=== PATIENT | female | born 1955 | race Caucasian/White ===

== ENCOUNTER 2017-07-18 06:56 | Inpatient (IN) ==
--- NOTE | 2017-07-13 16:41 | General Surgery Progress Note ---
Surgical - Auxillary Note - Subjective Patient Information: Note initiated : 07/13/17 at 4:37 pm Service Date, if different from initiated Date: [] Patient: Aroldo Overton 62 y/o F admitted on for Left Total Hip Arthroplasty. Chief Complaint: [preop visit] high risk surgical patient hx of dm, smoking, obesity, daily mj smoking, brain abscess surgery, psych, vonwillbrand last surgery 18 mo ago, lumbar w manisha, no complications. denies receiving ddavp denies EVER getting ddavp labs pending sx aware of issues, no orders for ddavp pt understands high risk, wishes to proceed.
[2017-07-13 20:10] LABS: Appearance,Urine CLEAR; Bilirubin,Urine NEG (NEG); Color,Urine YELLOW; Glucose,Urine (UA) NEGATIVE (NEG); Leukocyte Esterase,Urine NEG /uL (NEG); Protein,Urine 30 mg/dL (NEG); Specific Gravity,Urine 1.031 (1.000-1.035); Urine Blood NEG mg/dL (<0.03); Urobilinogen,Urine NEG (NEG)
[2017-07-13 20:53] LABS: Bacteria,Urine FEW /hpf (0); Urine Hyaline Cast 25 /lpf (0-2); Urine RBC 2 /hpf (0-1); Urine Squamous Epithelial Cell 8 /hpf (0-4); Urine WBC 1 /hpf (0-4)
[2017-07-13 21:15] LABS: Blood Urea Nitrogen 21 mg/dl (8-23)
[2017-07-13 21:30] LABS: Basophils # (Auto) 0.1 K/mcL (0.0-0.3); Basophils % (Auto) 0.4 % (0.0-2.0); Eosinophils # (Auto) 0.4 K/mcL (0.0-0.7); Granulocytes % (Auto) 56.2 % (38.0-78.0); Lymphocytes # (Auto) 4.4 K/mcL (1.5-4.8); Lymphocytes % (Auto) 34.3 % (15.5-49.0); Mean Cell Volume 98.8 fL (80.0-100.0); Mean Corpuscular HGB Conc 33.1 g/dL (31.0-36.0); Mean Corpuscular Hemoglobin 32.7 pg (26.0-34.0); Monocytes # (Auto) 0.8 K/mcL (0.1-0.9); Monocytes % (Auto) 6.1 % (1.0-12.0); Platelet Count 276 K/mcL (140-440); RBC 4.05 M/mcL (4.00-5.20); Red Cell Distribution Width 13.6 % (11.5-14.5)
[~2017-07-18 06:56] MED LIST: CELECOXIB 200 MG CAPSULE PO SCH; PREGABALIN 150 MG CAPSULE PO SCH; ceFAZolin 1 GM VIAL IV SCH; oxyCODONE 10 MG TAB.ER.12H PO SCH
[2017-07-18] MEDS ORDERED: PROPOFOL 200 MG/20 ML VIAL IV ONE (10:14)
[2017-07-18] MEDS ORDERED: MIDAZOLAM 5 MG/5 ML VIAL ONE (10:14)
[2017-07-18] MEDS ORDERED: ONDANSETRON 4 MG/2 ML VIAL ONE (10:14)
[2017-07-18] MEDS ORDERED: ePHEDrine 50 MG/ML AMPUL IV ONE (10:14)
[2017-07-18] MEDS ORDERED: GLYCOPYRROLATE 0.2 MG/ML VIAL IV ONE (10:14)
[2017-07-18] MEDS ORDERED: LIDOCAINE HCL/PF 100 MG/5 ML SYRINGE IV ONE (10:14)
[2017-07-18] MEDS ORDERED: GENTAMICIN SULFATE 800 MG/20 ML VIAL IR ONE (10:35)
[2017-07-18] MEDS ORDERED: PROMETHAZINE 25 MG/ML VIAL IV PRN ×2 (11:29→11:51)
[2017-07-18] MEDS ORDERED: diphenhydrAMINE 50 MG/ML VIAL IV PRN (11:29)
[2017-07-18] MEDS ORDERED: ACETAMINOPHEN 1,000 MG/100 ML BOTTLE IV ONE (11:29)
[2017-07-18] MEDS ORDERED: NALOXONE HCL 0.4 MG/ML VIAL IV PRN (11:29)
[2017-07-18] MEDS ORDERED: LACTATED RINGERS 250 ML IV PRN (11:29)
[2017-07-18] MEDS ORDERED: ONDANSETRON 4 MG/2 ML VIAL IV PRN ×2 (11:29→11:51)
[2017-07-18] MEDS ORDERED: IPRATROPIUM/ALBUTEROL 3 ML AMPUL.NEB NEB PRN (11:29)
[2017-07-18] MEDS ORDERED: FLUMAZENIL 0.1 MG/ML ML IV PRN (11:29)
[2017-07-18] MEDS ORDERED: BENZOCAINE/MENTHOL 1 LOZENGE PO PRN ×2 (11:29→11:51)
[2017-07-18] MEDS ORDERED: MEPERIDINE 25 MG/ML SYRINGE IV PRN (11:29)
[2017-07-18] MEDS ORDERED: LACTATED RINGERS 1,000 ML IV SCH (11:30)
[2017-07-18] MEDS ORDERED: ALBUTEROL SULFATE 1 PUFF INHALER INH PRN (11:49)
--- NOTE | 2017-07-18 11:49 | Brief Operative Note ---
Date of procedure: 07/18/17 Pre-op diagnosis: left hip osteoarthritis Post-op diagnosis: same Procedure: left total hip arthroplasty Grafts/Implants: Yes Anesthesia: spinal Complications: none Surgeon: Mohinder Cox Fig Bar Machine Operator: Christiana Matute Estimated blood loss (cc): 150 Specimens Removed/Pathology: none sent Condition: stable Disposition: PACU
[2017-07-18] MEDS ORDERED: POLYETHYLENE GLYCOL 3350 17 GM PACKET PO PRN (11:51)
[2017-07-18] MEDS ORDERED: BISACODYL 10 MG SUPP.RECT PR PRN (11:51)
[2017-07-18] MEDS ORDERED: TRANEXAMIC ACID 1,000 MG/10 ML VIAL IV SCH (11:51)
[2017-07-18] MEDS ORDERED: MAGNESIUM HYDROXIDE 30 ML ORAL.SUSP PO PRN (11:51)
[2017-07-18] MEDS ORDERED: FLEETS ADULT ENEMA PR PRN (11:51)
[2017-07-18] MEDS ORDERED: ONDANSETRON ODT 4 MG TABLET SL PRN (11:51)
[2017-07-18] MEDS: KETOROLAC 30 MG/ML VIAL IV PRN (12:35)
[2017-07-18] MEDS: fentaNYL 100 MCG/2 ML VIAL IV PRN ×2 (12:40→12:45)
--- NOTE | 2017-07-18 14:10 | XRay Report ---
CLINICAL INFORMATION: Postop total hip prostheses COMPARISON: 12/19/2015 FINDINGS: Left total hip prostheses is anatomically aligned. Older right total hip prostheses also remains anatomically aligned without loosening or infection. No osseous abnormality. Soft tissues swelling seen as expected IMPRESSION: Negative Interpreted and Authenticated by: Mohinder Knapp 07/18/17
[2017-07-18] MEDS: 0.9 % SODIUM CHLORIDE 1,000 ML IV SCH ×3 (14:43→23:16)
[2017-07-18] MEDS: METHOCARBAMOL 750 MG TABLET PO PRN ×2 (14:43→23:25)
--- NOTE | 2017-07-18 16:26 | Operative Note ---
DATE OF OPERATION: 07/18/2017 PREOPERATIVE DIAGNOSIS: Degenerative joint disease, left hip. POSTOPERATIVE DIAGNOSIS: Degenerative joint disease, left hip. PROCEDURE: Left total hip arthroplasty. SURGEON: Ivan Cox M.D. COAL SCREENER SURGEON: Christiana Matute PA-C ANESTHESIA: Spinal with LMA assist. ESTIMATED BLOOD LOSS: 150 mL COMPLICATIONS: None noted. SPECIMENS REMOVED: None. DRAINS: None. IMPLANTS: DePuy Haywood hole eliminator PS, DePuy Jackson Gription acetabular shell, 52 mm OD, DePuy Jackson AltrX polyethylene acetabular liner, neutral 36 x 52, DePuy Actis DuoFix hip prosthesis cementless, cementless high offset collar size 6, DePuy Biolox Delta ceramic femoral head, +5 36 mm diameter. INDICATIONS: The patient has had a longstanding history of worsening pain in the hip that has failed conservative treatment. Radiographs have confirmed advanced degenerative joint disease. After a long discussion about treatment options, the patient elected to proceed with a hip arthroplasty. The risks and benefits were discussed with the patient in detail including, but not limited to, the risks of anesthesia, problems with the heart or lungs related to anesthesia, infection, compromise or injury to the nerves and blood vessels, deep venous thrombosis, pulmonary embolism, pneumonia, continued pain after surgery, worsening pain or symptoms after surgery, swelling, loss of motion, instability, leg length discrepancy, and need for repeat surgery. DESCRIPTION OF PROCEDURE: The patient was seen in pre-anesthesia waiting room where all questions were answered and the correct side and site were identified and marked. The patient was then brought to the operating room and administered the anesthetic and given pre-operative antibiotics. A timeout was then called. The patient was placed in the lateral decubitus position with all prominences well-padded using the Bong frame and the extremity was prepped and draped in the usual sterile fashion. Anesthesia gave the patient 1 gm of tranexamic acid via an intravenous route. A standard posterior approach was made. We dissected through the skin and subcutaneous tissue to the deep fascia. The deep fascia was split in line with the incision and a Charnley retractor was placed. We exposed, tagged, and incised the short external rotators and piriformis tendon and retracted them posteriorly to help protect the sciatic nerve which was palpated throughout the case. We then performed a T-capsulotomy and tagged the capsule edges. Prior to dislocating the hip, we set a length and offset gauge from a Steinmann pin in the iliac wing to a lalita on the greater trochanter. The hip was then dislocated and a femoral neck osteotomy was performed to the pre-surgical templated level off the lesser trochanter. The head was removed and sized. We next turned our attention to the acetabulum. Retractors were placed for optimal visualization. A complete labral excision was performed. The capsule was preserved for later closure. We began reaming using anatomic landmarks with the DePuy Jackson acetabular system. We medialized the cup and reamed up to provide good fill and coverage of the trial. When the trial was stable and appropriately positioned with approximately 20 degrees of anteversion and 45 degrees of abduction, we impacted the DePuy Jackson cup and placed a cancellous screw in the posterior-superior quadrant. Osteophytes were removed from around the shell. We placed the trial liner and turned our attention to the femur. We placed retractors for visualization, internally rotated the femur, and established intramedullary access. We broached using the DePuy Tri-Lock stem to a stable platform medial, lateral, and rotationally with the appropriate version. We then performed a calcar reaming off the broach. Trials were then placed and optimized for leg length and stability. We used the leg length and offset guide to confirm our trials. Best stability, length, and offset characteristics were obtained with these sizes. We removed all trials and impacted the polyethylene acetabular liner in a standard fashion after a thorough irrigation. We then impacted the femoral stem to its broached location and placed the head. Final reduction was performed. Again, good stability, leg length, and offset characteristics were noted. We irrigated with three liters of antibiotic saline. We closed the capsule with #2 FiberWire. We placed a deep drain and closed the fascia with a combination of looped #0 Maxon and #0 Vicryl. We closed the subcutaneous tissue and skin in layers out to farshad in the skin. A sterile pressure dressing and abduction wedge was applied. All needle and sponge counts were correct. The patient was transferred to the recovery room in stable condition. DORON:krunal Job ID: [id number] Doc ID: [id number] Ivan Cox MD
[2017-07-18] MEDS: 0.9 % SODIUM CHLORIDE 10 ML SYRINGE IV SCH ×2 (17:35→22:01)
[2017-07-18] MEDS: HYDROcodone/APAP 10/325MG TABLET PO PRN ×2 (17:53→23:15)
[2017-07-18] MEDS: ceFAZolin 1 GM VIAL IV SCH (17:54)
[2017-07-18] MEDS: GLIMEPIRIDE 2 MG TABLET PO SCH (17:54)
[2017-07-18] MEDS: ALPRAZolam 0.5 MG TABLET PO SCH (21:48)
[2017-07-18] MEDS: TEMAZEPAM 15 MG CAPSULE PO SCH (21:49)
[2017-07-18] MEDS: ASPIRIN 325 MG ENTERIC COATED TABLET PO SCH (21:50)
[2017-07-18] MEDS: SIMVASTATIN 20 MG TABLET PO SCH (21:50)
[2017-07-18] MEDS: CELECOXIB 200 MG CAPSULE PO SCH (21:50)
[2017-07-18] MEDS: BACLOFEN 10 MG TABLET PO SCH (21:50)
[2017-07-18] MEDS: QUEtiapine 100 MG TABLET PO SCH (21:50)
[2017-07-18] MEDS: PREGABALIN 150 MG CAPSULE PO SCH (21:50)
[2017-07-18] MEDS: DULoxetine 30 MG CAPSULE PO SCH (21:50)
[2017-07-18] MEDS: SENNOSIDES 1 TABLET PO SCH (21:51)
[2017-07-18] MEDS: DOCUSATE SODIUM 100 MG CAPSULE PO SCH (21:51)
[2017-07-18] MEDS: FLUTICASONE PROPIONATE SPRAY.NAS NS SCH (22:03)
[2017-07-19] MEDS: ceFAZolin 1 GM VIAL IV SCH (01:44)
[2017-07-19] MEDS: 0.9 % SODIUM CHLORIDE 1,000 ML IV SCH ×4 (03:26→20:10)
[2017-07-19] MEDS: HYDROcodone/APAP 10/325MG TABLET PO PRN ×5 (03:42→21:27)
[2017-07-19] MEDS: 0.9 % SODIUM CHLORIDE 10 ML SYRINGE IV SCH ×3 (05:20→21:40)
--- NOTE | 2017-07-19 07:30 | Orthopedic Progress Note ---
Subjective Patient information: Note initiated : 07/19/17 at 7:27 am Service Date, if different from initiated Date: [] Patient: Aroldo Overton 62 y/o F admitted on 07/18/17 for Left Total Hip Arthroplasty. Chief Complaint: [POD #1 s/p left ELINA Patient doing fairly well. Reports irritation of her lower back with a history of nerve compression. States she is having some radicular symptoms related to this but denies any new onset numbness or tingling in the lower extremities. She reports minimal pain in her left hip and ambulated well yesterday. She denies CP, SOB, or calf pain.] Objective Vital signs: Vital Signs Temp Pulse Resp BP BP Pulse Ox 07/19/17 04:00 97.6 F 71 18 143/82 99 07/19/17 00:00 97.8 F 67 16 111/67 97 07/18/17 20:00 97.8 F 57 L 16 136/75 94 07/18/17 14:46 134/70 99 07/18/17 13:46 115/58 100 07/18/17 13:17 131/56 97 07/18/17 13:05 97.9 F 54 L 13 134/69 100 07/18/17 13:00 97.9 F 50 L 12 126/63 100 07/18/17 12:47 111/61 98 07/18/17 12:45 55 L 15 123/59 100 07/18/17 12:32 82/46 98 07/18/17 12:30 97.5 F 59 L 14 136/98 100 07/18/17 12:25 52 L 10 L 113/55 100 07/18/17 12:20 51 L 11 L 105/54 99 07/18/17 12:18 123/53 99 07/18/17 12:15 97.6 F 67 16 158/67 100 07/18/17 12:12 142/63 99 Intake and Output 07/18/17 07/19/17 07/19/17 21:59 05:59 13:59 Intake Total 1290 / 1290 1200 / 1200 973 / 973 Output Total 576 / 576 300 / 300 Balance 714 / 714 900 / 900 973 / 973 Intake: IV 1000 / 1000 973 / 973 Sodium Chloride 0.9% 1,000 ml @ 1000 / 1000 973 / 973 125 mls/hr IV .Q8H VIVIANA Rx#: [id number] Oral 1290 / 1290 200 / 200 Output: Void Amount 575 / 575 300 / 300 # of times incontinent of urine Other: Meal Dinner Percent of Meal Consumed 100% Feeding Ability Independent Weight 245 lb 8 oz Intake & Output: Intake & Output 07/18/17 07/19/17 07/19/17 21:59 05:59 13:59 Intake Total 1290 / 1290 1200 / 1200 973 / 973 Output Total 576 / 576 300 / 300 Balance 714 / 714 900 / 900 973 / 973 Weight 245 lb 8 oz Intake: IV 1000 / 1000 973 / 973 Sodium Chloride 0.9% 1,000 ml @ 1000 / 1000 973 / 973 125 mls/hr IV .Q8H VIVIANA Rx#: [id number] Oral 1290 / 1290 200 / 200 Output: Void Amount 575 / 575 300 / 300 # of times incontinent of urine Other: Meal Dinner Percent of Meal Consumed 100% Feeding Ability Independent Incision: Yes healing, No draining, No red, No swollen, No inflamed, Yes clean and dry Incision clean and dry: Yes Dressing: Yes clean, Yes dry, Yes intact Weight bearing status: as tolerated Range of motion: Full AROM b/l ankles, feet, knees Neurological exam IM: Yes alert, Yes oriented X3 Extremities exam IM: No calf tenderness, Yes normal capillary refill, Yes normal inspection, No tenderness, No Jj's sign, Yes Foot pink and warm, Yes neurovascular intact - Periperhal Pulses Peripheral pulses: 2+: dorsalis pedis (L), dorsalis pedis (R), posterior tibialis (L), posterior tibialis (R) - Diagnostic Results Hip x-ray: image reviewed - Labs CBC & BMP: 07/19/17 04:30 07/13/17 16:48 Labs: Orthopedic Labs 07/13/17 16:48 PT 11.8 L INR 0.9 07/19/17 07/13/17 04:30 16:48 Hgb 9.9 L 13.2 Hct 29.5 L 40.1 Assessment and Plan (1) Hip osteoarthritis POD #1 s/p left ELINA: -d/c to SNF or swing bed in 3 days -inpatient PT -pain control -WBAT -may change dressing on 07/20. Has dermabond. -DVT prophylaxis with ASA 325mg BID Status: Acute
[2017-07-19] MEDS: GLIMEPIRIDE 2 MG TABLET PO SCH ×2 (09:15→17:01)
[2017-07-19] MEDS: METHOCARBAMOL 750 MG TABLET PO PRN (09:16)
[2017-07-19] MEDS: ASPIRIN 325 MG ENTERIC COATED TABLET PO SCH ×2 (10:32→21:30)
[2017-07-19] MEDS: DULoxetine 30 MG CAPSULE PO SCH ×3 (10:33→21:34)
[2017-07-19] MEDS: METOPROLOL TARTRATE 25 MG TABLET PO SCH (10:33)
[2017-07-19] MEDS: CELECOXIB 200 MG CAPSULE PO SCH ×3 (10:34→21:34)
[2017-07-19] MEDS: PHENYTOIN SOD 100 MG CAPSULE PO SCH (10:34)
[2017-07-19] MEDS: DOCUSATE SODIUM 100 MG CAPSULE PO SCH ×2 (10:34→21:29)
[2017-07-19] MEDS: PREGABALIN 150 MG CAPSULE PO SCH ×2 (10:34→21:29)
[2017-07-19] MEDS: KETOROLAC 30 MG/ML VIAL IV PRN ×3 (10:40→20:07)
[2017-07-19] MEDS: BACLOFEN 10 MG TABLET PO SCH (21:28)
[2017-07-19] MEDS: SIMVASTATIN 20 MG TABLET PO SCH (21:29)
[2017-07-19] MEDS: TEMAZEPAM 15 MG CAPSULE PO SCH (21:29)
[2017-07-19] MEDS: ALPRAZolam 0.5 MG TABLET PO SCH (21:29)
[2017-07-19] MEDS: FLUTICASONE PROPIONATE SPRAY.NAS NS SCH (21:31)
[2017-07-19] MEDS: SENNOSIDES 1 TABLET PO SCH (21:31)
[2017-07-19] MEDS: QUEtiapine 100 MG TABLET PO SCH (21:50)
[2017-07-20] MEDS: 0.9 % SODIUM CHLORIDE 1,000 ML IV SCH ×3 (04:18→22:23)
[2017-07-20] MEDS: HYDROcodone/APAP 10/325MG TABLET PO PRN ×4 (04:50→19:56)
[2017-07-20] MEDS: 0.9 % SODIUM CHLORIDE 10 ML SYRINGE IV SCH ×4 (04:51→21:28)
[2017-07-20] MEDS: KETOROLAC 30 MG/ML VIAL IV PRN (04:57)
--- NOTE | 2017-07-20 07:31 | Orthopedic Progress Note ---
Subjective Patient information: Note initiated : 07/20/17 at 7:29 am Service Date, if different from initiated Date: [] Patient: Aroldo Overton 62 y/o F admitted on 07/18/17 for Left Total Hip Arthroplasty. Chief Complaint: [] Interval history: doing well. still painful from sciatic nerve, hip ok Objective Vital signs: Vital Signs Temp Pulse Resp BP Pulse Ox 07/20/17 07:22 96.7 F L 61 18 110/69 96 07/20/17 04:00 97.9 F 67 18 101/66 93 07/20/17 00:00 97.8 F 66 18 115/62 94 07/19/17 20:00 98.0 F 59 L 20 134/72 96 07/19/17 15:52 98.7 F 64 103/67 94 07/19/17 11:45 98.6 F 57 L 123/69 95 07/19/17 08:18 98.7 F 65 129/77 100 Intake and Output 07/19/17 07/20/17 07/20/17 21:59 05:59 13:59 Intake Total 1000 / 1000 1550 / 1550 Output Total 500 / 500 Balance 500 / 500 1550 / 1550 Intake: IV 1000 / 1000 1000 / 1000 Sodium Chloride 0.9% 1,000 ml @ 1000 / 1000 1000 / 1000 125 mls/hr IV .Q8H VIVIANA Rx#: [id number] Oral 550 / 550 Output: Void Amount 500 / 500 Other: # Voids 1 Weight 246 lb Intake & Output: Intake & Output 07/19/17 07/20/17 07/20/17 21:59 05:59 13:59 Intake Total 1000 / 1000 1550 / 1550 Output Total 500 / 500 Balance 500 / 500 1550 / 1550 Weight 246 lb Intake: IV 1000 / 1000 1000 / 1000 Sodium Chloride 0.9% 1,000 ml @ 1000 / 1000 1000 / 1000 125 mls/hr IV .Q8H VIVIANA Rx#: [id number] Oral 550 / 550 Output: Void Amount 500 / 500 Other: # Voids 1 Incision: Yes healing Incision clean and dry: Yes Dressing: Yes clean, Yes dry, Yes intact Weight bearing status: full Neurological exam IM: Yes alert, Yes oriented X3, Yes neurovascular intact Extremities exam IM: No calf tenderness, Yes Foot pink and warm, Yes neurovascular intact - Labs CBC & BMP: 07/20/17 04:55 07/13/17 16:48 Labs: Orthopedic Labs 07/13/17 16:48 PT 11.8 L INR 0.9 07/20/17 07/19/17 07/13/17 04:55 04:30 16:48 Hgb 9.7 L 9.9 L 13.2 Hct 28.9 L 29.5 L 40.1 Assessment and Plan (1) Hip osteoarthritis pod 2 s/p kaci wbat pain control dvt prophylaxis d/c planning - swing bead Status: Acute
--- NOTE | 2017-07-20 07:32 | Discharge Summary ---
Ortho Discharge - ELINA - Patient Instructions Diet: Regular Diet Activity: weight bearing as tolerated Total Hip Protocol: Follow activity instructions as provided by Physical Therapy. Dressing Care: May shower in 2 days - Problem Maintenance (1) Hip osteoarthritis Status: Acute - Follow Up Plan Follow Up Appointments: Mohinder Cox MD [Physician] - 08/01/17 1:00 pm Disposition: Xfer SNF Prognosis: Good Rehab Potential: Good I certify that the patient requires SNF services: Yes Overall status at discharge: patient is progressing back to baseline
[2017-07-20] MEDS: GLIMEPIRIDE 2 MG TABLET PO SCH ×2 (07:50→17:39)
[2017-07-20] MEDS: DOCUSATE SODIUM 100 MG CAPSULE PO SCH ×2 (08:48→21:19)
[2017-07-20] MEDS: CELECOXIB 200 MG CAPSULE PO SCH ×3 (08:49→21:20)
[2017-07-20] MEDS: PREGABALIN 150 MG CAPSULE PO SCH ×2 (08:49→21:19)
[2017-07-20] MEDS: PHENYTOIN SOD 100 MG CAPSULE PO SCH (08:49)
[2017-07-20] MEDS: METOPROLOL TARTRATE 25 MG TABLET PO SCH (08:49)
[2017-07-20] MEDS: DULoxetine 30 MG CAPSULE PO SCH ×3 (08:49→21:23)
[2017-07-20] MEDS: ASPIRIN 325 MG ENTERIC COATED TABLET PO SCH ×2 (08:50→21:19)
[2017-07-20] MEDS: BACLOFEN 10 MG TABLET PO SCH (21:18)
[2017-07-20] MEDS: ALPRAZolam 0.5 MG TABLET PO SCH (21:20)
[2017-07-20] MEDS: SIMVASTATIN 20 MG TABLET PO SCH (21:20)
[2017-07-20] MEDS: QUEtiapine 100 MG TABLET PO SCH (21:21)
[2017-07-20] MEDS: SENNOSIDES 1 TABLET PO SCH (21:21)
[2017-07-20] MEDS: FLUTICASONE PROPIONATE SPRAY.NAS NS SCH (21:24)
[2017-07-20] MEDS: TEMAZEPAM 15 MG CAPSULE PO SCH (21:28)
[2017-07-21] MEDS: HYDROcodone/APAP 10/325MG TABLET PO PRN ×3 (03:25→11:41)
[2017-07-21] MEDS: METHOCARBAMOL 750 MG TABLET PO PRN (06:02)
[2017-07-21] MEDS: 0.9 % SODIUM CHLORIDE 10 ML SYRINGE IV SCH (06:03)
--- NOTE | 2017-07-21 06:37 | Discharge Summary ---
Providers - Providers Patient information: Note initiated : 07/21/17 at 6:35 am Service Date, if different from initiated Date: [] Patient: Aroldo Overton 62 y/o F admitted on 07/18/17 for Left Total Hip Arthroplasty. Chief Complaint: [POD #3 s/p left ELINA Doing well. Went 7 hours without pain medication and is now trying to catch up but pain is somewhat under control. Denies numbness, tingling, calf pain, SOB or CP. No questions or concerns. Ambulating okay.] Discharge date: 07/21/17 Hospitalization Hospital course: Patient brought into the OR 07/18/17 for left ELINA which happened without complication. Admitted to hospital for 3 nights for pain control and observation. Will d/c to swing bed in [place] today. Will follow up in office in 10-14 days for post operative appointment. Discharge diagnosis: hip osteoarthritis Exam - Exam Incision healing: Yes Incision draining: No Incision red: No Incision swollen: No Incision inflamed: No Clean and dry: Yes Weight bearing status: as tolerated Range of motion: Full ankles, feet, knees Ortho Discharge - ELINA - Patient Instructions Diet: Regular Diet Activity: weight bearing as tolerated Total Hip Protocol: Follow activity instructions as provided by Physical Therapy. Patient Education: Total Hip Replacement (DC) Additional Instructions: Discharge Instructions: Do the exercises at home that physical therapy gave you throughout the day. Wear comfortable clothing for your physical therapy. Weight bearing as tolerated. You have Dermabond (a dressing with a mesh-like appearance), leave open to air. Do not remove this dressing. You may start showering on post op day #2. The Dermabond dressing can get wet, do not scrub dressing. Pat dry. To avoid constipation while taking any narcotic pain medication, take an over the counter stool softener/laxative. Use ice packs as directed, on for 20 minutes at a time throughout the day. This and elevation will help with pain and swelling. Call your physician for fevers above 100.5 or pain not controlled by medication. Your prescriptions are with your discharge information. Some medications were electronically transmitted to your pharmacy of choice. - Problem Maintenance (1) Hip osteoarthritis Status: Acute - Follow Up Plan Follow Up Appointments: Mohinder Cox MD [Physician] - 08/01/17 1:00 pm Disposition: Xfer SNF Prognosis: Good Rehab Potential: Good I certify that the patient requires SNF services: Yes - Orders For Discharge Prescriptions: Aspirin [Ecotrin] 325 mg PO BID #60 tab.ec HYDROcodone/APAP 10/325MG [Humacao 10-325Mg] 1 - 2 tab PO Q4H PRN #60 tab PRN Reason: Pain Additional Discharge Orders: Physical Therapy at Discharge - ELINA Location: Determined By Patient Toilet Riser Discharge Order Location: Determined By Patient Walker Location: Determined By Patient Pending Studies Resuscitation Status Full Code Diet Regular Diet Start Tue 16 1153 Hydrocodone Bitart/Acetaminophen ([place] 10/325mg) 0 tab PO Q4HP PRN PRN Reason: PAIN LEVEL 3-6 Last Admin: 07/21/17 03:25 Dose: 2 tab Admin: 07/20/17 19:56 Dose: 2 tab Admin: 07/20/17 13:23 Dose: 2 tab Admin: 07/20/17 08:50 Dose: 2 tab Admin: 07/20/17 04:50 Dose: 2 tab Admin: 07/19/17 21:27 Dose: 2 tab Admin: 07/19/17 16:59 Dose: 2 tab Admin: 07/19/17 12:44 Dose: 2 tab Admin: 07/19/17 08:38 Dose: 2 tab Admin: 07/19/17 03:42 Dose: 2 tab Admin: 07/18/17 23:15 Dose: 2 tab Admin: 07/18/17 17:53 Dose: 2 tab Alprazolam (Xanax) 1.5 mg [address] [facility] Last Admin: 07/20/17 21:20 Dose: 1.5 mg Admin: 07/19/17 21:29 Dose: 1.5 mg Admin: 07/18/17 21:48 Dose: 1.5 mg Aspirin (Ecotrin) 325 mg PO BID [facility] Last Admin: 07/20/17 21:19 Dose: 325 mg Admin: 07/20/17 08:50 Dose: 325 mg Admin: 07/19/17 21:30 Dose: 325 mg Admin: 07/19/17 10:32 Dose: 325 mg Admin: 07/18/17 21:50 Dose: 325 mg Baclofen (Lioresal) 30 mg PO [facility] Last Admin: 07/20/17 21:18 Dose: 30 mg Admin: 07/19/17 21:28 Dose: 30 mg Admin: 07/18/17 21:50 Dose: 30 mg Celecoxib (Celebrex) 200 mg PO BID [facility] Last Admin: 07/20/17 21:20 Dose: Admin: 07/20/17 17:46 Dose: 200 mg Admin: 07/20/17 08:49 Dose: 200 mg Admin: 07/19/17 21:34 Dose: Admin: 07/19/17 17:09 Dose: 200 mg Admin: 07/19/17 10:34 Dose: 200 mg Admin: 07/18/17 21:50 Dose: Docusate Sodium (Colace) 100 mg PO BID [facility] Last Admin: 07/20/17 21:19 Dose: 100 mg Admin: 07/20/17 08:48 Dose: 100 mg Admin: 07/19/17 21:29 Dose: 100 mg Admin: 07/19/17 10:34 Dose: 100 mg Admin: 07/18/17 21:51 Dose: 100 mg Duloxetine HCl (Cymbalta) 60 mg PO BID [facility] Last Admin: 07/20/17 21:23 Dose: Admin: 07/20/17 17:46 Dose: 60 mg Admin: 07/20/17 08:49 Dose: 60 mg Admin: 07/19/17 21:34 Dose: Admin: 07/19/17 17:10 Dose: 60 mg Admin: 07/19/17 10:33 Dose: 60 mg Admin: 07/18/17 21:50 Dose: Fluticasone Propionate (Flonase) 2 spray NS HS [facility] Last Admin: 07/20/17 21:24 Dose: 2 spray Admin: 07/19/17 21:31 Dose: 2 spray Admin: 07/18/17 22:03 Dose: 2 spray Glimepiride (Amaryl) 4 mg PO BIDAC [facility] Last Admin: 07/20/17 17:39 Dose: 4 mg Admin: 07/20/17 07:50 Dose: 4 mg Admin: 07/19/17 17:01 Dose: 4 mg Admin: 07/19/17 09:15 Dose: 4 mg Admin: 07/18/17 17:54 Dose: 4 mg Magnesium Hydroxide (Milk Of Magnesia) 30 ml PO BIDP PRN PRN Reason: Constipation Last Admin: 07/20/17 14:16 Dose: 30 ml Methocarbamol (Robaxin) 750 mg PO Q6HP PRN PRN Reason: Muscle Spasm Last Admin: 07/21/17 06:02 Dose: 750 mg Admin: 07/19/17 09:16 Dose: 750 mg Admin: 07/18/17 23:25 Dose: 750 mg Admin: 07/18/17 14:43 Dose: 750 mg Metoprolol Tartrate (Lopressor) 25 mg PO DAILY [facility] Last Admin: 07/20/17 08:49 Dose: 25 mg Admin: 07/19/17 10:33 Dose: 25 mg Morphine Sulfate (Morphine) 0 mg IV Q1HP PRN PRN Reason: PAIN LEVEL > 6 Last Admin: 07/21/17 06:02 Dose: 4 mg Admin: 07/20/17 07:50 Dose: 4 mg Admin: 07/19/17 23:55 Dose: 4 mg Admin: 07/19/17 12:03 Dose: 4 mg Admin: 07/19/17 10:24 Dose: 2 mg Admin: 07/19/17 03:42 Dose: 2 mg Admin: 07/18/17 19:20 Dose: 4 mg Admin: 07/18/17 14:43 Dose: 4 mg Phenytoin Sodium (Dilantin) 400 mg PO DAILY [facility] Last Admin: 07/20/17 08:49 Dose: 400 mg Admin: 07/19/17 10:34 Dose: 400 mg Pregabalin (Lyrica) 150 mg PO BID [facility] Last Admin: 07/20/17 21:19 Dose: 150 mg Admin: 07/20/17 08:49 Dose: 150 mg Admin: 07/19/17 21:29 Dose: 150 mg Admin: 07/19/17 10:34 Dose: 150 mg Admin: 07/18/17 21:50 Dose: 150 mg Quetiapine Fumarate (Seroquel) 900 mg PO [facility] Last Admin: 07/20/17 21:21 Dose: 900 mg Admin: 07/19/17 21:50 Dose: 900 mg Admin: 07/18/17 21:50 Dose: 900 mg Senna (Senokot) 2 tab PO [facility] Last Admin: 07/20/17 21:21 Dose: 2 tab Admin: 07/19/17 21:31 Dose: 2 tab Admin: 07/18/17 21:51 Dose: Not Given Simvastatin (Zocor) 20 mg PO [facility] Last Admin: 07/20/17 21:20 Dose: 20 mg Admin: 07/19/17 21:29 Dose: 20 mg Admin: 07/18/17 21:50 Dose: 20 mg Sodium Chloride (Saline Flush) 10 ml IV Q8 [facility] Last Admin: 07/21/17 06:03 Dose: 10 ml Admin: 07/20/17 21:28 Dose: 10 ml Admin: 07/20/17 13:23 Dose: 10 ml Admin: 07/20/17 08:48 Dose: 10 ml Admin: 07/20/17 04:51 Dose: 10 ml Admin: 07/19/17 21:40 Dose: Not Given Admin: 07/19/17 15:23 Dose: Not Given Admin: 07/19/17 05:20 Dose: Not Given Admin: 07/18/17 22:01 Dose: Not Given Admin: 07/18/17 17:35 Dose: Not Given Temazepam (Restoril) 15 - 45 mg PO HS [facility] Last Admin: 07/20/17 21:28 Dose: 30 mg Admin: 07/19/17 21:29 Dose: 15 mg Admin: 07/18/17 21:49 Dose: 15 mg Shift Summary 07/21/17 04:42 Shift Summary by Latoya Marrero Pt slept most of the night. Has been up in room to BR to void; also in halls once before bed. PO meds controlling pain. Plan is to d/c to [place] swing bed today. Initialized on 07/21/17 04:42 - END OF NOTE Exam Temp Pulse Resp BP Pulse Ox 97.2 F 62 16 117/68 93 07/21/17 04:00 07/21/17 04:00 07/21/17 04:00 07/21/17 04:00 07/21/17 04:00 - General physical appearance well developed, well nourished, no distress - Cardiovascular Peripheral pulses: 2+: dorsalis pedis (L), dorsalis pedis (R), posterior tibialis (L), posterior tibialis (R) - Neurologic Present: normal sensation, other (motorsensory intact. All extremities NVI)
[2017-07-21] MEDS: PHENYTOIN SOD 100 MG CAPSULE PO SCH (09:46)
[2017-07-21] MEDS: DULoxetine 30 MG CAPSULE PO SCH (09:47)
[2017-07-21] MEDS: CELECOXIB 200 MG CAPSULE PO SCH (09:47)
[2017-07-21] MEDS: DOCUSATE SODIUM 100 MG CAPSULE PO SCH (09:47)
[2017-07-21] MEDS: PREGABALIN 150 MG CAPSULE PO SCH (09:47)
[2017-07-21] MEDS: GLIMEPIRIDE 2 MG TABLET PO SCH (09:47)
[2017-07-21] MEDS: METOPROLOL TARTRATE 25 MG TABLET PO SCH (09:47)
[2017-07-21] MEDS: ASPIRIN 325 MG ENTERIC COATED TABLET PO SCH (09:47)
== END 2017-07-21 12:00 | DRG 470 ==
LOC: MEDSUR 06:56
PROVIDERS: ADMIT Orthopaedic Surgery Sports Medicine; ATTEND Orthopaedic Surgery Sports Medicine

== ENCOUNTER 2018-10-31 06:47 | Inpatient (IN) ==
[2018-10-24 19:34] LABS: Appearance,Urine CLEAR; Bilirubin,Urine NEG (NEG); Color,Urine YELLOW; Culture Indicated,Urine NO; Glucose,Urine (UA) NEGATIVE (NEG); Ketones,Urine NEG (NEG); Leukocyte Esterase,Urine NEG /uL (NEG); Nitrate,Urine NEG (NEG); Protein,Urine NEG (NEG); Specific Gravity,Urine 1.015 (1.000-1.035); Urine Blood NEG mg/dL (<0.03); Urobilinogen,Urine NEG (NEG)
[2018-10-24 20:33] LABS: INR 0.9 (0.9-1.1); Prothrombin Time 12.4 sec (11.9-14.5)
[2018-10-24 20:45] LABS: Basophils # (Auto) 0 K/mcL (0.0-0.3); Basophils % (Auto) 0.2 % (0.0-2.0); Eosinophils # (Auto) 0.2 K/mcL (0.0-0.7); Eosinophils % (Auto) 1.6 % (0.0-7.0); Granulocytes % (Auto) 61.8 % (38.0-78.0); Hematocrit 41.4 % (36.0-48.0); Hemoglobin 13.5 g/dL (12.0-15.0); Lymphocytes # (Auto) 3.3 K/mcL (1.5-4.8); Lymphocytes % (Auto) 30.5 % (15.5-49.0); Mean Cell Volume 99.4 fL (80.0-100.0); Mean Corpuscular HGB Conc 32.7 g/dL (31.0-36.0); Mean Platelet Volume 8.9 fL (7.4-10.4); Monocytes # (Auto) 0.6 K/mcL (0.1-0.9); Monocytes % (Auto) 5.9 % (1.0-12.0); Platelet Count 300 K/mcL (140-440); RBC 4.16 M/mcL (4.00-5.20); Red Cell Distribution Width 14.1 % (11.5-14.5); WBC 10.9 K/mcL (4.5-11.0)
[2018-10-24 20:56] LABS: Blood Urea Nitrogen 22 mg/dl (8-23); Calcium 9.2 mg/dl (8.6-10.4); Carbon Dioxide 25 mmol/L (22-30); Chloride 99 mmol/L (96-108); Glomerular Filtration Rate 40; Glucose 202 mg/dL (70-105)
[2018-10-24 21:12] LABS: Estimated Average Glucose(eAG) 114 mg/dL; Hemoglobin A1C 5.6 % HGB (4.0-6.0)
[~2018-10-31 06:47] MED LIST changes: -ceFAZolin 1 GM VIAL IV SCH; +ceFAZolin 2 GM in DEXTROSE 5% IN WATER 50 ML IV SCH
[2018-10-31] MEDS ORDERED: GENTAMICIN SULFATE 800 MG/20 ML VIAL IR ONE (07:09)
[2018-10-31] MEDS ORDERED: IPRATROPIUM/ALBUTEROL 3 ML AMPUL.NEB NEB PRN ×2 (09:00→11:19)
[2018-10-31] MEDS ORDERED: SCOPOLAMINE 1 PATCH PATCH TOPICAL PRN (09:00)
[2018-10-31] MEDS ORDERED: PHENYLEPHRINE 10 MG/ML VIAL IV ONE (09:04)
[2018-10-31] MEDS ORDERED: KETAMINE 100 MG/ML ML IV ONE (09:04)
[2018-10-31] MEDS ORDERED: LIDOCAINE HCL/PF 100 MG/5 ML SYRINGE IV ONE (09:04)
[2018-10-31] MEDS ORDERED: GLYCOPYRROLATE 0.2 MG/ML VIAL IV ONE (09:04)
[2018-10-31] MEDS ORDERED: TRANEXAMIC ACID 1,000 MG/10 ML VIAL IV ONE ×2 (09:04→11:23)
[2018-10-31] MEDS ORDERED: ePHEDrine 50 MG/ML AMPUL IV ONE (09:04)
[2018-10-31] MEDS ORDERED: MIDAZOLAM 5 MG/5 ML VIAL IV ONE (09:04)
[2018-10-31] MEDS ORDERED: ONDANSETRON 4 MG/2 ML VIAL IV ONE (09:04)
[2018-10-31] MEDS ORDERED: PROPOFOL 200 MG/20 ML VIAL IV ONE (09:04)
[2018-10-31] MEDS ORDERED: METHOCARBAMOL 1,000 MG/10 ML VIAL IV PRN (11:19)
[2018-10-31] MEDS ORDERED: ePHEDrine 50 MG/ML AMPUL IV PRN (11:19)
[2018-10-31] MEDS ORDERED: KETOROLAC 30 MG/ML VIAL IV PRN (11:19)
[2018-10-31] MEDS ORDERED: ACETAMINOPHEN 1,000 MG/100 ML BOTTLE IV ONE ×2 (11:19→12:30)
[2018-10-31] MEDS ORDERED: LORazepam 2 MG/ML VIAL IV PRN (11:19)
--- NOTE | 2018-10-31 11:21 | Brief Operative Note ---
Date of procedure: 10/31/18 Pre-op diagnosis: left hip pain and instability s/p kaci Post-op diagnosis: same Procedure: left hip revision of acetabular component Grafts/Implants: Yes Anesthesia: spinal Complications: none Surgeon: Mohinder Cox Atmospheric Chemist: Christiana Matute Estimated blood loss (cc): 250 Specimens Removed/Pathology: other (cultures and frozens) Condition: stable Disposition: PACU
[2018-10-31] MEDS ORDERED: ALBUTEROL SULFATE 1 PUFF INHALER INH PRN (11:22)
[2018-10-31] MEDS ORDERED: DEXTROSE 50% 50 ML VIAL IV PRN (11:23)
[2018-10-31] MEDS ORDERED: ONDANSETRON 4 MG ODT TABLET SL PRN (11:23)
[2018-10-31] MEDS ORDERED: FLEETS ADULT ENEMA PR PRN (11:23)
[2018-10-31] MEDS ORDERED: ONDANSETRON 4 MG/2 ML VIAL IV PRN (11:23)
[2018-10-31] MEDS ORDERED: POLYETHYLENE GLYCOL 3350 17 GM PACKET PO PRN (11:23)
[2018-10-31] MEDS ORDERED: BENZOCAINE/MENTHOL 1 LOZENGE PO PRN (11:23)
[2018-10-31] MEDS ORDERED: BISACODYL 10 MG SUPP.RECT PR PRN (11:23)
[2018-10-31] MEDS ORDERED: DEXTROSE 31 GM ORAL.SUSP PO PRN (11:23)
[2018-10-31] MEDS ORDERED: MAGNESIUM HYDROXIDE 30 ML ORAL.SUSP PO PRN (11:23)
[2018-10-31] MEDS ORDERED: LACTATED RINGERS 1,000 ML IV SCH (11:30)
[2018-10-31] MEDS: MEPERIDINE 25 MG/ML SYRINGE IV PRN ×2 (12:08→12:14)
[2018-10-31] MEDS: fentaNYL 100 MCG/2 ML VIAL IV PRN ×2 (12:16→12:23)
--- NOTE | 2018-10-31 12:16 | Operative Note ---
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 PROCEDURE: Revision left total hip arthroplasty with acetabular component. SURGEON: Ivan Cox M.D. HEALTH CENTER ASSISTANT SURGEON: Christiana Matute PA-C. The PA's assistance was required for the safe and efficient completion of the entire case. This provider's expertise and technical skill were required throughout the case. The PA assisted with preoperative coordination, intraoperative retraction, wound closure, dressing and splint application, as well as postoperative documentation and care coordination. ANESTHESIA: Spinal with LMA assist. ESTIMATED BLOOD LOSS: 250 mL. COMPLICATIONS: None noted. SPECIMENS REMOVED: Cultures x2 and frozen section x2 with no white blood cells per high-power field. DRAINS: None. IMPLANTS: DePuy Bi-Mentum pressfit cup 53 mm; DePuy Bi-Mentum polyethylene liner 28 x 53; DePuy Articul/valerie femoral head 28, +12 taper. INDICATIONS: The patient has had a previous total hip arthroplasty. It went on to dislocate. She has had pain and it was revised with a __ lipped liner. She did well and then redislocated. She continues to have pain and wished to proceed with a revision total hip arthroplasty. The risks and benefits were discussed with the patient in detail including, but not limited to, the risks of anesthesia, problems with the heart or lungs related to anesthesia, infection, compromise or injury to the nerves and blood vessels, deep venous thrombosis, pulmonary embolism, pneumonia, continued pain after surgery, worsening pain or symptoms after surgery, swelling, loss of motion, instability, leg length discrepancy, and need for repeat surgery. DESCRIPTION OF PROCEDURE: The patient was seen in pre-anesthesia waiting room where all questions were answered and the correct side and site were identified and marked. The patient was then brought to the operating room and administered the anesthetic and given pre-operative antibiotics. A time-out was then called. The patient was placed in the lateral decubitus position with all prominences well-padded using the [place] frame and the extremity was prepped and draped in the usual sterile fashion. Anesthesia gave the patient 1 gram of tranexamic acid via an intravenous route. A standard posterior approach was made. We dissected through the skin and subcutaneous tissue to the deep fascia. The deep fascia was split in line with the incision and a Charnley retractor was placed. We exposed, tagged, and incised the short external rotators and piriformis tendon and retracted them posteriorly to help protect the sciatic nerve which was palpated throughout the case. We then performed a T-capsulotomy and tagged the capsule edges. Prior to dislocating the hip, we set a length and offset gauge from a Steinmann pin in the iliac wing to a lalita on the greater trochanter. The hip was then dislocated and the femoral head was removed. We next turned our attention to the acetabulum. Retractors were placed for optimal visualization. A complete excision of the soft tissue was created around the acetabular component. I used the Jeronimo explant. Starting with the short blade, we were able to go all the way around the cup. Then we went to the long blade and went all the way around again. After doing this, I was able to extract the cup, taking out little amount of bone. I then re-reamed up to a 53, and we trialed this. We placed the final implant, the Bi-Mentum pressfit cup 53 mm with approximately 20 degrees of anteversion, 45 degrees of abduction. We impacted the cup and palpated around, showing that we had excellent fit, stability, and no osteophytes Trials were then placed and optimized for leg length and stability. We used the leg length and offset guide to confirm our trials. Best stability, length, and offset characteristics were obtained with these sizes. We removed all trials and placed Articul/valerie femoral head 28, +12 in the Bi-Mentum polyethylene liner 28 x 53. This was attached to our femoral stem which was left intact. Final reduction was performed. Again, good stability, leg length, and offset characteristics were noted. We irrigated with three liters of antibiotic saline. We closed the capsule with #2 FiberWire. Of note, we did take bone and soft tissue prior to antibiotics and sent this off to the pathologist which demonstrated no white blood cells per high-power field. I also took two cultures. We closed the fascia with a combination of #2 Stratafix and 0 Vicryl. We closed the subcutaneous tissue and skin in layers out to farshad in the skin. A sterile pressure dressing and abduction wedge was applied. All needle and sponge counts were correct. The patient was transferred to the recovery room in stable condition. DORON:brittney Job ID: [id number] Doc ID: [id number] Ivan Cox MD
[2018-10-31] MEDS: KETOROLAC 15 MG/ML VIAL IV PRN (13:10)
[2018-10-31] MEDS: HYDROcodone/APAP 10/325MG TABLET PO PRN ×3 (13:11→21:28)
[2018-10-31] MEDS: 0.9 % SODIUM CHLORIDE 1,000 ML IV SCH ×2 (13:11→21:57)
--- NOTE | 2018-10-31 13:12 | XRay Report ---
CLINICAL INFORMATION: Post-Op Total Hip ReVision COMPARISON: 07/18/2017. FINDINGS: Revised left total hip prostheses is anatomically aligned. No osseous abnormality. Older right total hip prostheses is anatomically aligned without loosening or infection. IMPRESSION: Negative Interpreted and Authenticated by: Mohinder Knapp 10/31/18
[2018-10-31] MEDS: INSULIN LISPRO 1 UNIT/0.01 ML UNIT SQ SCH ×3 (13:20→21:39)
[2018-10-31] MEDS: 0.9 % SODIUM CHLORIDE 10 ML SYRINGE IV SCH ×2 (15:44→22:53)
[2018-10-31] MEDS: ceFAZolin 1 GM VIAL IV SCH (17:06)
[2018-10-31] MEDS: METHOCARBAMOL 750 MG TABLET PO PRN (18:01)
[2018-10-31] MEDS: DOCUSATE SODIUM 100 MG CAPSULE PO SCH (21:09)
[2018-10-31] MEDS: PREGABALIN 150 MG CAPSULE PO SCH (21:09)
[2018-10-31] MEDS: ASPIRIN 81 MG TAB.CHEW PO SCH (21:10)
[2018-10-31] MEDS: SENNOSIDES 1 TABLET PO SCH (21:10)
[2018-10-31] MEDS: ALPRAZolam 0.5 MG TABLET PO SCH (21:11)
[2018-10-31] MEDS: BACLOFEN 10 MG TABLET PO SCH (21:12)
[2018-10-31] MEDS: QUEtiapine 100 MG TABLET PO SCH (21:13)
[2018-10-31] MEDS: TEMAZEPAM 15 MG CAPSULE PO SCH (21:29)
[2018-10-31] MEDS: DULoxetine 30 MG CAPSULE PO SCH (21:33)
[2018-10-31] MEDS: VARENICLINE TARTRATE 1 MG TABLET PO SCH (21:39)
[2018-10-31] MEDS: SIMVASTATIN 20 MG TABLET PO SCH (22:00)
[2018-10-31] MEDS: FLUTICASONE PROPIONATE SPRAY.NAS NS SCH (22:01)
[2018-11-01] MEDS: ceFAZolin 1 GM VIAL IV SCH (01:18)
[2018-11-01] MEDS: HYDROcodone/APAP 10/325MG TABLET PO PRN ×2 (03:51→09:00)
[2018-11-01 06:01] LABS: Hematocrit 28.6 % (36.0-48.0); Hemoglobin 9.7 g/dL (12.0-15.0)
[2018-11-01] MEDS: 0.9 % SODIUM CHLORIDE 10 ML SYRINGE IV SCH ×3 (06:14→21:11)
[2018-11-01] MEDS: 0.9 % SODIUM CHLORIDE 1,000 ML IV SCH ×3 (06:14→22:53)
--- NOTE | 2018-11-01 06:58 | Orthopedic Progress Note ---
Subjective Patient information: Note initiated : 11/01/18 at 6:55 am Service Date, if different from initiated Date: [] Patient: Aroldo Overton 63 y/o F admitted on 10/31/18 for Left Hip Revision of Acetabular Component with. Chief Complaint: [POD #1 s/p left ELINA Doing well today. States hip feels better than previous surgeries. Has some i ncisional burning and has had to take break through Morphine one time. She developed a rash on her left forearm and hand only which is not the site of her IV or prep site. She denies numbness, tingling, pruritus, CP, SOB, calf pain.] Objective Vital signs: Vital Signs Temp Pulse Resp BP Pulse Ox 11/01/18 03:43 98 F 72 14 112/58 97 11/01/18 00:17 97.8 F 68 12 137/67 92 10/31/18 18:59 98.2 F 55 L 16 124/65 97 10/31/18 16:00 97.4 F 49 L 18 138/67 96 10/31/18 14:40 49 L 18 138/67 96 10/31/18 14:15 49 L 18 141/59 96 10/31/18 13:40 56 L 18 141/65 98 10/31/18 13:25 56 L 18 118/72 96 10/31/18 13:10 47 L 16 138/71 99 10/31/18 12:55 48 L 16 150/73 96 10/31/18 12:40 97.4 F 48 L 16 132/70 97 10/31/18 12:35 98.1 F 50 L 16 133/64 100 10/31/18 12:25 49 L 15 141/102 98 10/31/18 12:10 54 L 16 128/102 100 10/31/18 11:55 56 L 16 126/54 100 10/31/18 11:50 48 L 14 127/51 100 10/31/18 11:47 98.7 F 52 L 16 119/52 100 10/31/18 07:00 98.2 F 51 L 14 146/71 95 Intake and Output 10/31/18 11/01/18 11/01/18 21:59 05:59 13:59 Intake Total 1680 1100 Output Total 825 250 Balance 855 850 Intake: IV 1000 1000 Sodium Chloride 0.9% 1,000 ml @ 1000 1000 125 mls/hr IV .Q8H VIVIANA Rx#: [id number] Oral 680 100 Output: Void Amount 825 250 Other: Meal Lunch Percent of Meal Consumed 100% Feeding Ability Independent Urine Appearance Clear Urine Color Bright Yellow Dark Yellow Urine Odor Normal Strong Weight 259 lb 12.8 oz Intake & Output: Intake & Output 10/31/18 11/01/18 11/01/18 21:59 05:59 13:59 Intake Total 1680 1100 Output Total 825 250 Balance 855 850 Weight 259 lb 12.8 oz Intake: IV 1000 1000 Sodium Chloride 0.9% 1,000 ml @ 1000 1000 125 mls/hr IV .Q8H VIVIANA Rx#: [id number] Oral 680 100 Output: Void Amount 825 250 Other: Meal Lunch Percent of Meal Consumed 100% Feeding Ability Independent Urine Appearance Clear Urine Color Bright Yellow Dark Yellow Urine Odor Normal Strong Incision: Yes healing, No draining, No red, No swollen, No inflamed, Yes clean and dry Incision clean and dry: Yes Dressing: Yes clean, Yes dry, Yes intact Weight bearing status: as tolerated Range of motion: full knee, foot and ankle Neurological exam IM: Yes alert, Yes oriented X3, Yes motor sensory intact, Yes neurovascular intact Extremities exam IM: No calf tenderness, Yes normal capillary refill, Yes Foot pink and warm, Yes neurovascular intact - Periperhal Pulses Peripheral pulses: 2+: dorsalis pedis (L), dorsalis pedis (R), posterior tibialis (L), posterior tibialis (R) - Labs CBC & BMP: 11/01/18 04:30 10/24/18 16:15 Labs: Orthopedic Labs 10/24/18 16:15 PT 12.4 INR 0.9 11/01/18 10/24/18 04:30 16:15 Hgb 9.7 L 13.5 Hct 28.6 L 41.4 Assessment and Plan (1) Hip osteoarthritis POD #1 s/p left ELINA revision of acetabular component -d/c planning to SNF, possible 2 night stay -spoke to PCP who controls chronic pain. Will stay on regular Hydrocodone 10mg/325 dose throughout the day. If on d/c the patient needs something for breakthrough pain for 1-2 weeks, will send with Percocet for breakthrough. Right now she's doing ok with Hydrocodone -WBAT -farshad -PT Status: Acute
[2018-11-01] MEDS: INSULIN LISPRO 1 UNIT/0.01 ML UNIT SQ SCH ×4 (07:23→19:52)
[2018-11-01] MEDS: SIMVASTATIN 20 MG TABLET PO SCH ×2 (09:07→22:54)
[2018-11-01] MEDS: PHENYTOIN SOD 100 MG CAPSULE PO SCH (09:08)
[2018-11-01] MEDS: METOPROLOL TARTRATE 25 MG TABLET PO SCH (09:08)
[2018-11-01] MEDS: DOCUSATE SODIUM 100 MG CAPSULE PO SCH ×2 (09:08→20:57)
[2018-11-01] MEDS: VARENICLINE TARTRATE 1 MG TABLET PO SCH ×2 (09:08→21:04)
[2018-11-01] MEDS: ASPIRIN 81 MG TAB.CHEW PO SCH ×2 (09:08→20:59)
[2018-11-01] MEDS: DULoxetine 30 MG CAPSULE PO SCH ×2 (09:08→22:53)
[2018-11-01] MEDS: PREGABALIN 150 MG CAPSULE PO SCH ×2 (09:08→20:57)
[2018-11-01] MEDS: GLIMEPIRIDE 2 MG TABLET PO SCH (09:08)
[2018-11-01] MEDS: NICOTINE 21 MG PATCH TOPICAL SCH (09:08)
[2018-11-01] MEDS: METHOCARBAMOL 750 MG TABLET PO PRN (11:21)
[2018-11-01] MEDS: oxyCODONE/APAP 5/325MG TABLET PO PRN ×3 (12:06→20:59)
--- NOTE | 2018-11-01 16:03 | Surgical Pathology Report ---
HISTOLOGY SPECIMEN MICROSCOPIC DIAGNOSIS SPECIMEN A - SOFT TISSUE, LEFT HIP #1, BIOPSY: -- FIBROVASCULAR TISSUE WITH IRREGULAR FIBROSIS AND PATCHY MILD CHRONIC INFLAMMATION. -- NO NEUTROPHILS IDENTIFIED. SPECIMEN B - BONE AND SOFT TISSUE, LEFT HIP #2, BIOPSY: -- LAMELLAR BONE WITH ASSOCIATED FIBROSIS. -- NO NEUTROPHILS IDENTIFIED. (ACP:sln) INTRAOPERATIVE CONSULTATION FROZEN SECTION DIAGNOSES (Performed at [facility], [place], [place]) FSA - HIP, LEFT #1, BIOPSY: -- NO NEUTROPHILS IDENTIFIED. FSB - HIP, LEFT #2, BIOPSY: -- NO NEUTROPHILS IDENTIFIED. (ACP:sln) GROSS DESCRIPTION Specimen A Received fresh as left hip #1 and consists of a red-johnson portion of soft tissue with cautery artifact that measures 1.5 x 1.0 x 0.5 cm. The specimen is serially sectioned and entirely submitted for frozen section analysis and for permanent sections as FSA. Specimen B Received fresh as left hip #2 and consists of a thin portion of red-johnson bone with attached soft tissue that measures 2.2 x 0.8 x 0.3 cm. A portion of soft tissue is removed and submitted for frozen section analysis and for permanent sections as FSB. (ACP:amari) Electronically Signed by: Rodríguez Chin M.D.
[2018-11-01] MEDS: KETOROLAC 15 MG/ML VIAL IV PRN (19:25)
[2018-11-01] MEDS: SENNOSIDES 1 TABLET PO SCH (20:57)
[2018-11-01] MEDS: BACLOFEN 10 MG TABLET PO SCH (20:57)
[2018-11-01] MEDS: ALPRAZolam 0.5 MG TABLET PO SCH (20:58)
[2018-11-01] MEDS: TEMAZEPAM 15 MG CAPSULE PO SCH (20:58)
[2018-11-01] MEDS: QUEtiapine 100 MG TABLET PO SCH (20:59)
[2018-11-01] MEDS: FLUTICASONE PROPIONATE SPRAY.NAS NS SCH (22:53)
[2018-11-02] MEDS: oxyCODONE/APAP 5/325MG TABLET PO PRN ×3 (04:33→18:51)
[2018-11-02] MEDS: KETOROLAC 15 MG/ML VIAL IV PRN (04:34)
[2018-11-02 06:36] LABS: Hematocrit 31.6 % (36.0-48.0); Hemoglobin 10.4 g/dL (12.0-15.0)
[2018-11-02] MEDS: 0.9 % SODIUM CHLORIDE 1,000 ML IV SCH ×2 (07:11→11:03)
--- NOTE | 2018-11-02 07:25 | Orthopedic Progress Note ---
Subjective Patient information: Note initiated : 11/02/18 at 7:23 am Service Date, if different from initiated Date: [] Patient: Aroldo Overton 63 y/o F admitted on 10/31/18 for Left Hip Revision of Acetabular Component with. Chief Complaint: [POD #2 s/p left ELINA revision Patient doing well today. Ambulating well. Is having trouble controlling pain as they took her off her chronic hydros. Otherwise ok. Denies CP, SOB, numbness, tingling, calf pain] Objective Vital signs: Vital Signs Temp Pulse Resp BP Pulse Ox 11/02/18 04:01 98.9 F 78 18 151/67 98 11/01/18 23:52 98.4 F 71 16 102/50 91 11/01/18 19:57 99.1 F H 68 16 141/65 95 11/01/18 16:00 98.0 F 63 122/65 94 11/01/18 12:00 97.8 F 64 14 119/61 95 11/01/18 08:00 65 14 93 11/01/18 07:45 98.4 F 65 14 98/52 93 Intake and Output 11/01/18 11/02/18 11/02/18 21:59 05:59 13:59 Intake Total 1989 400 Output Total 925 1250 Balance 1065 -850 Intake: Oral 1989 400 Output: Void Amount 925 1250 Other: Meal Dinner Percent of Meal Consumed 100% Feeding Ability Independent Urine Appearance Clear Urine Color Bright Yellow Bright Yellow Urine Odor Normal # Voids 4 Weight 260 lb 3.2 oz Intake & Output: Intake & Output 11/01/18 11/02/18 11/02/18 21:59 05:59 13:59 Intake Total 1989 400 Output Total 925 1250 Balance 1065 -850 Weight 260 lb 3.2 oz Intake: Oral 1989 400 Output: Void Amount 925 1250 Other: Meal Dinner Percent of Meal Consumed 100% Feeding Ability Independent Urine Appearance Clear Urine Color Bright Yellow Bright Yellow Urine Odor Normal # Voids 4 Incision: Yes healing, No draining, No red, No swollen, No inflamed, Yes clean and dry Incision clean and dry: Yes Dressing: Yes clean, Yes dry, Yes intact Weight bearing status: as tolerated Range of motion: full knee foot and ankle Neurological exam IM: Yes alert, Yes oriented X3, Yes motor sensory intact, Yes neurovascular intact Extremities exam IM: Yes Foot pink and warm, Yes neurovascular intact - Labs CBC & BMP: 11/02/18 04:57 10/24/18 16:15 Labs: Orthopedic Labs 10/24/18 16:15 PT 12.4 INR 0.9 11/02/18 11/01/18 10/24/18 04:57 04:30 16:15 Hgb 10.4 L 9.7 L 13.5 Hct 31.6 L 28.6 L 41.4 Assessment and Plan (1) Hip osteoarthritis POD #2 s/p left ELINA revision of acetabular component -d/c planning to SNF tomorrow -spoke to PCP who controls chronic pain. Will stay on regular Hydrocodone 10mg/325 dose throughout the day. If on d/c the patient needs something for breakthrough pain for 1-2 weeks, will send with Percocet for breakthrough. Restart hydros on normal daily dose. Add Percocet 5mg in between hydros prn pain -WBAT -farshad. may shower today -PT Status: Acute
[2018-11-02] MEDS: 0.9 % SODIUM CHLORIDE 10 ML SYRINGE IV SCH ×3 (07:34→21:59)
[2018-11-02] MEDS: ASPIRIN 81 MG TAB.CHEW PO SCH ×2 (07:45→21:55)
[2018-11-02] MEDS: PREGABALIN 150 MG CAPSULE PO SCH ×2 (07:45→21:53)
[2018-11-02] MEDS: DOCUSATE SODIUM 100 MG CAPSULE PO SCH ×2 (07:45→21:56)
[2018-11-02] MEDS: HYDROcodone/APAP 10/325MG TABLET PO PRN (07:46)
[2018-11-02] MEDS: DULoxetine 30 MG CAPSULE PO SCH ×2 (07:47→21:55)
[2018-11-02] MEDS: METHOCARBAMOL 750 MG TABLET PO PRN (07:47)
[2018-11-02] MEDS: PHENYTOIN SOD 100 MG CAPSULE PO SCH (07:48)
[2018-11-02] MEDS: METOPROLOL TARTRATE 25 MG TABLET PO SCH (07:48)
[2018-11-02] MEDS ORDERED: oxyCODONE/APAP 5/325MG TABLET PO PRN (07:52)
[2018-11-02] MEDS: INSULIN LISPRO 1 UNIT/0.01 ML UNIT SQ SCH ×4 (07:57→21:57)
[2018-11-02] MEDS: VARENICLINE TARTRATE 1 MG TABLET PO SCH ×2 (07:58→21:51)
[2018-11-02] MEDS: GLIMEPIRIDE 2 MG TABLET PO SCH (07:58)
[2018-11-02] MEDS: HYDROcodone/APAP 10/325MG TABLET PO SCH ×3 (07:59→21:56)
[2018-11-02] MEDS: NICOTINE 21 MG PATCH TOPICAL SCH (08:46)
--- NOTE | 2018-11-02 19:12 | Discharge Summary ---
Ortho Discharge - ELINA - Patient Instructions Diet: Regular Diet Activity: ambulate with assistive device, weight bearing as tolerated Total Hip Protocol: Follow activity instructions as provided by Physical Therapy. Dressing Care: May shower in 2 days Patient Education: Total Hip Replacement (DC) Additional Instructions: Discharge Instructions: Do the exercises at home that physical therapy gave you. Weight bearing as tolerated. Wear comfortable clothing for your physical therapy. You have the Aquacel Ag dressing, leave in place for 7 days then remove. If dressing becomes soiled (turns black), remove and use gauze 4x4 dressing and silvasorb ointment and change daily. You may shower with dressing on, pat dry after shower. You may start showering on post op day #2. To avoid constipation while taking any narcotic pain medication, take an over the counter stool softener/laxative. Use ice packs as directed, on for 20 minutes at a time throughout the day. This and elevation will help with pain and swelling. Call your physician for fevers above 100.5 or pain not controlled by medication. Your prescriptions are with your discharge information. Some medications were electronically transmitted to your pharmacy of choice. Take Aspirin as prescribed to prevent blood clots (see medication list). - Follow Up Plan Follow Up Appointments: Christiana Matute PA-C [Physician [facility]] - 11/15/18 9:40 am Disposition: Xfer SNF Prognosis: Good Rehab Potential: Good I certify that the patient requires SNF services: Yes Overall status at discharge: patient is progressing back to baseline
[2018-11-02] MEDS: TEMAZEPAM 15 MG CAPSULE PO SCH (21:52)
[2018-11-02] MEDS: SENNOSIDES 1 TABLET PO SCH (21:52)
[2018-11-02] MEDS: ALPRAZolam 0.5 MG TABLET PO SCH (21:53)
[2018-11-02] MEDS: QUEtiapine 100 MG TABLET PO SCH (21:54)
[2018-11-02] MEDS: BACLOFEN 10 MG TABLET PO SCH (21:54)
[2018-11-02] MEDS: SIMVASTATIN 20 MG TABLET PO SCH (21:56)
[2018-11-02] MEDS: FLUTICASONE PROPIONATE SPRAY.NAS NS SCH (21:58)
[2018-11-03] MEDS: 0.9 % SODIUM CHLORIDE 10 ML SYRINGE IV SCH (04:10)
[2018-11-03 06:15] LABS: Hematocrit 26.8 % (36.0-48.0); Hemoglobin 8.9 g/dL (12.0-15.0)
[2018-11-03] MEDS: INSULIN LISPRO 1 UNIT/0.01 ML UNIT SQ SCH (07:15)
[2018-11-03] MEDS: oxyCODONE/APAP 5/325MG TABLET PO PRN (07:27)
--- NOTE | 2018-11-03 07:35 | Orthopedic Progress Note ---
Subjective Patient information: Note initiated : 11/03/18 at 7:33 am Service Date, if different from initiated Date: [] Patient: Aroldo Overton 63 y/o F admitted on 10/31/18 for Left Hip Revision of Acetabular Component. POD 3. Chief Complaint: Left hip pain. Interval history: POD #2 s/p left ELINA revision of acetabular component. Overall doing well this AM and states her pain is managed. Denies SOB, CP, Abd pain, N/V, calf pain. Pertinent ROS: negative except per HPI. Objective Vital signs: Vital Signs Temp Pulse Pulse Resp BP Pulse Ox 11/03/18 03:36 98.6 F 60 16 101/57 99 11/03/18 00:43 98 11/03/18 00:00 97.3 F 76 20 120/64 11/02/18 20:00 98.8 F 77 20 116/61 92 11/02/18 16:00 98.5 F 65 18 112/56 94 11/02/18 08:00 98.0 F 76 18 143/66 93 Intake and Output 11/02/18 11/03/18 11/03/18 21:59 05:59 13:59 Intake Total 1900 125 Output Total 1725 Balance 175 125 Intake: Oral 1900 125 Output: Void Amount 1725 Other: Meal Dinner Percent of Meal Consumed 100% Feeding Ability Independent Urine Appearance Clear Urine Color Dark Yellow Urine Odor Normal Weight 267 lb 14.4 oz Intake & Output: Intake & Output 11/02/18 11/03/18 11/03/18 21:59 05:59 13:59 Intake Total 1900 125 Output Total 1725 Balance 175 125 Weight 267 lb 14.4 oz Intake: Oral 1900 125 Output: Void Amount 1725 Other: Meal Dinner Percent of Meal Consumed 100% Feeding Ability Independent Urine Appearance Clear Urine Color Dark Yellow Urine Odor Normal Dressing: Yes clean, Yes intact Weight bearing status: as tolerated Neurological exam IM: Yes alert, Yes oriented X3 Extremities exam IM: No calf tenderness, Yes normal inspection, No Jj's sign, Yes Foot pink and warm, Yes neurovascular intact Additional Comments: pillow between legs for post hip precautions - Labs CBC & BMP: 11/03/18 04:57 10/24/18 16:15 Labs: Orthopedic Labs 10/24/18 16:15 PT 12.4 INR 0.9 11/03/18 11/02/18 11/01/18 04:57 04:57 04:30 Hgb 8.9 L 10.4 L 9.7 L Hct 26.8 L 31.6 L 28.6 L 10/24/18 16:15 Hgb 13.5 Hct 41.4 Assessment and Plan - Narrative A/P Narrative: POD 3 s/p left ELINA revision of acetabular component -d/c planning to SNF today -WBAT -f/u with ortho in 2 weeks -continue with PT -continue DVT prophylaxis
[2018-11-03] MEDS: ASPIRIN 81 MG TAB.CHEW PO SCH (09:50)
[2018-11-03] MEDS: PHENYTOIN SOD 100 MG CAPSULE PO SCH (09:50)
[2018-11-03] MEDS: PREGABALIN 150 MG CAPSULE PO SCH (09:50)
[2018-11-03] MEDS: DULoxetine 30 MG CAPSULE PO SCH (09:50)
[2018-11-03] MEDS: DOCUSATE SODIUM 100 MG CAPSULE PO SCH (09:50)
[2018-11-03] MEDS: HYDROcodone/APAP 10/325MG TABLET PO SCH (09:51)
[2018-11-03] MEDS: VARENICLINE TARTRATE 1 MG TABLET PO SCH (09:51)
[2018-11-03] MEDS: METOPROLOL TARTRATE 25 MG TABLET PO SCH (09:51)
[2018-11-03] MEDS: NICOTINE 21 MG PATCH TOPICAL SCH (09:52)
[2018-11-03] MEDS: GLIMEPIRIDE 2 MG TABLET PO SCH (09:52)
== END 2018-11-03 11:42 | DRG 467 ==
LOC: MEDSUR 06:47
PROVIDERS: ADMIT Orthopaedic Surgery Sports Medicine; ATTEND Orthopaedic Surgery Sports Medicine